=== PATIENT | female | born 1935 | race African-American/Black ===

== ENCOUNTER 2021-12-18 15:45 | Emergency (ER) | payer OTHER ==
[~2021-12-18] VITALS: Ht 165.1 cm; Wt 60.0 kg
[~2021-12-18 15:45] MED LIST: METF-414 MT; VITA250012 MT
[2021-12-18] MEDS ORDERED: EPINEPHRINE 1:1000 1 MG/ML AMP IM ONE (16:15)
[2021-12-18] MEDS ORDERED: METHYLPREDNISOLONE SOD SUCC 125 MG/2 ML VIAL IV ONE (16:15)
[2021-12-18] MEDS ORDERED: DIPHENHYDRAMINE 50MG/ML VIAL IV ONE (16:15)
[2021-12-18] MEDS ORDERED: FAMOTIDINE 20MG/2ML VIAL IV ONE (16:15)
[2021-12-18] MEDS ORDERED: FAMOTIDINE 20MG/2ML VIAL IV NR (17:00)
[2021-12-18 17:05] LABS: BASOPHILS % 0.3 % (0.0-2.0); EOSINOPHILS % 0.4 % (0.0-5.0); HEMATOCRIT. 34.7 % (36.0-48.0); HEMOGLOBIN. 11.1 g/dL (12.0-16.0); LYMPHOCYTES % 14.1 % (20.0-50.0); MEAN CORPUSCULAR HEMOGLOBIN 28.4 pg (28.0-32.0); MEAN CORPUSCULAR VOLUME 88.4 fL (81.0-99.0); MEAN PLATELET VOLUME 8.7 fl (7.4-10.4); MONOCYTES % 6.7 % (2.0-8.0); NEUTROPHILS % 78.5 % (40.0-76.0); PLATELET 269 x1000/uL (130-400); RED BLOOD CELL COUNT 3.93 mill/uL (4.2-5.4)
[2021-12-18 17:10] LABS: CHLORIDE 106 mEq/L (98-107)
[2021-12-18 19:47] VITALS: BP 140/53
[2021-12-18] MEDS ORDERED: EPIN0.3P3 IM (20:14)
== END 2021-12-18 20:41 | disposition home or self-care (01) ==
LOC: ER 15:45
DX: T78.40XA Allergy, unspecified, initial encounter (principal); X58.XXXA Exposure to other specified factors, initial encounter
CPT/HCPCS: 36415; 80053; 85025; 96372; 96374; 96375; 99291; J1200; J2930; J3490

== ENCOUNTER 2023-05-14 12:02 | Inpatient (IN) | payer OTHER ==
[~2023-05-14] VITALS: Ht 162.6 cm; Wt 35.0 kg
[~2023-05-14 12:02] MED LIST changes: +EPIN0.3P3 IM
[2023-05-14 12:40] LABS: BASOPHILS % 0.3 % (0.0-2.0); HEMATOCRIT. 38.3 % (36.0-48.0); HEMOGLOBIN. 12.9 g/dL (12.0-16.0); LYMPHOCYTES % 11.9 % (20.0-50.0); MEAN CORPUSCULAR HEMOGLOBIN 27.8 pg (28.0-32.0); MEAN CORPUSCULAR HGB CONC 33.6 g/dL (31.0-37.0); MEAN CORPUSCULAR VOLUME 82.6 fL (81.0-99.0); MEAN PLATELET VOLUME 7.4 fl (7.4-10.4); MONOCYTES % 6.7 % (2.0-8.0); NEUTROPHILS % 81.1 % (40.0-76.0); PLATELET 306 x1000/uL (130-400); RED BLOOD CELL COUNT 4.64 mill/uL (4.2-5.4); RED CELL DISTRIBUTION WIDTH 13.1 % (11.6-14.6)
[2023-05-14 12:51] LABS: CHLORIDE 95 mEq/L (98-107); INDEX HEMOLYSI 1 (1-3); INDEX ICTERIC 1 (1-4); INDEX LIPEMIC 1 (1-3); POTASSIUM 3.9 mEq/L (3.5-5.1); SODIUM 133 mEq/L (136-145)
[2023-05-14 12:57] LABS: ALANINE AMINOTRANSFERASE 22 IU/L (13-61); ALBUMIN 3.9 g/dL (3.4-5.0); ASPARTATE AMINOTRANSFERASE 33 IU/L (15-37); BILIRUBIN TOTAL 0.7 mg/dL (0.1-1.0); CALCIUM 9.1 mg/dL (8.5-10.1); CARBON DIOXIDE 22 mEq/L (21-32); CREATININE 4.3 mg/dL (0.6-1.3); GLUCOSE 191 mg/dL (70-105); PROTEIN TOTAL 7.7 g/dL (6.0-8.3); UREA NITROGEN BLOOD 65 mg/dL (7-21)
[2023-05-14] MEDS ORDERED: SODIUM CHLORIDE 0.9% 1000ML BAG (SEPSIS BOLUS) IV ONE (18:00)
[2023-05-14] MEDS ORDERED: CEFTRIAXONE 1GM PREMIX 50 ML IV ONE (18:00)
[2023-05-14 20:17] LABS: NT PRO B-TYPE NATRIURETIC PEP 1800 pg/mL (5-125)
[2023-05-14 20:21] LABS: LACTIC ACID 3.6 mmol/L (0.4-2.0); TROPONIN I HIGH SENSITIVITY 100 ng/L (<54)
[2023-05-14] MEDS ORDERED: CEFTRIAXONE 1GM PREMIX 50 ML IV NR (20:45)
[2023-05-14 20:47] LABS: CLARITY URINE TURBID (CLEAR); COLOR URINE YELLOW (YELLOW); GLUCOSE URINE NEGATIVE (NEGATIVE); KETONES URINE TRACE (NEGATIVE); LEUKOCYTE ESTERASE URINE 2+ (NEGATIVE); NITRITE URINE NEGATIVE (NEGATIVE); OCCULT BLOOD URINE 2+ (NEGATIVE); PROTEIN URINE 3+ (NEGATIVE); SPECIFIC GRAVITY URINE 1.018 (1.005-1.030); UROBILINOGEN URINE 0.2 E.U./dL (0.2-1.0)
[2023-05-14 21:07] LABS: COARSE GRANULAR CASTS URINE 0-5 /lpf
[2023-05-14 21:08] LABS: BACTERIA URINE 2+; SQUAMOUS EPITHELIAL CELL URINE FEW /lpf (RARE/1+)
[2023-05-14] MEDS ORDERED: ASPIRIN 81MG TABLET PO ONE (21:30)
[2023-05-14 22:03] VITALS: BP 129/59; PULSE 82; RESP 19; TEMP 97.7
[2023-05-14] MEDS ORDERED: DEXTROSE 50% WATER 50ML SYRINGE IV PRN (23:45)
[2023-05-15] VITALS: BP 132/52; PULSE 88; RESP 19; TEMP 97.5
[2023-05-15 04:00] VITALS: PULSE 80; RESP 20; TEMP 97.7
[2023-05-15] MEDS: BLOOD SUGAR DIAGNOSTIC STRIP TEST SCH ×4 (06:14→20:36)
[2023-05-15 06:38] LABS: BASOPHILS % 0.3 % (0.0-2.0); EOSINOPHILS % 0.1 % (0.0-5.0); HEMATOCRIT. 33.5 % (36.0-48.0); HEMOGLOBIN. 11.6 g/dL (12.0-16.0); LYMPHOCYTES % 19.2 % (20.0-50.0); MEAN CORPUSCULAR HEMOGLOBIN 28.5 pg (28.0-32.0); MEAN CORPUSCULAR HGB CONC 34.6 g/dL (31.0-37.0); MEAN CORPUSCULAR VOLUME 82.4 fL (81.0-99.0); MEAN PLATELET VOLUME 8.4 fl (7.4-10.4); MONOCYTES % 6.9 % (2.0-8.0); NEUTROPHILS % 73.5 % (40.0-76.0); PLATELET 272 x1000/uL (130-400); RED BLOOD CELL COUNT 4.06 mill/uL (4.2-5.4); RED CELL DISTRIBUTION WIDTH 13.1 % (11.6-14.6); WHITE BLOOD COUNT 6.7 x1000/uL (4.5-11.0)
[2023-05-15 07:20] LABS: POTASSIUM 3.3 mEq/L (3.5-5.1)
[2023-05-15 07:45] LABS: CREATININE 3.7 mg/dL (0.6-1.3)
[2023-05-15 08:00] VITALS: BP 98/44; PULSE 74; RESP 20; TEMP 98.4
[2023-05-15] MEDS: INSULIN LISPRO 100 UNITS/ML SUBCUT SCH ×4 (08:10→20:36)
[2023-05-15 12:00] VITALS: BP 98/44; PULSE 74; RESP 20; TEMP 98.1
[2023-05-15 16:00] VITALS: BP 117/62; PULSE 77; RESP 16; TEMP 96.9
[2023-05-15] MEDS ORDERED: THIAMINE HCL 200 MG in SODIUM CHLORIDE 0.9% 98 ML IV SCH (18:00)
[2023-05-15 20:00] VITALS: BP 124/66; PULSE 75; RESP 16; TEMP 97.3
[2023-05-15] MEDS ORDERED: CEFTRIAXONE 1,000 MG in DEXTROSE 5% WATER 50 ML IV SCH (20:00)
[2023-05-15] MEDS: SODIUM CHLORIDE 0.9% 1,000 ML IV SCH (20:10)
[2023-05-16] VITALS: BP 94/44; PULSE 60; RESP 17; TEMP 96.9
[2023-05-16 04:00] VITALS: BP_SYST 107; BP_SYST 116; BP_DIAS 50; BP_DIAS 61; PULSE 61; PULSE 71; RESP 17; RESP 18; TEMP 96.8; TEMP 97.7
[2023-05-16 06:34] LABS: BASOPHILS % 0.3 % (0.0-2.0); EOSINOPHILS % 0.3 % (0.0-5.0); HEMATOCRIT. 35.5 % (36.0-48.0); HEMOGLOBIN. 12.2 g/dL (12.0-16.0); LYMPHOCYTES % 14.5 % (20.0-50.0); MEAN CORPUSCULAR HEMOGLOBIN 28.5 pg (28.0-32.0); MEAN CORPUSCULAR HGB CONC 34.3 g/dL (31.0-37.0); MEAN CORPUSCULAR VOLUME 83.2 fL (81.0-99.0); MEAN PLATELET VOLUME 8.1 fl (7.4-10.4); MONOCYTES % 8.2 % (2.0-8.0); NEUTROPHILS % 76.7 % (40.0-76.0); PLATELET 258 x1000/uL (130-400); RED BLOOD CELL COUNT 4.27 mill/uL (4.2-5.4); RED CELL DISTRIBUTION WIDTH 13.3 % (11.6-14.6); WHITE BLOOD COUNT 6.8 x1000/uL (4.5-11.0)
[2023-05-16] MEDS: BLOOD SUGAR DIAGNOSTIC STRIP TEST SCH ×2 (07:40→12:40)
[2023-05-16 07:52] LABS: FOLIC ACID (FOLATE) SERUM 10.1 ng/mL (>5.38)
[2023-05-16 08:00] VITALS: BP 117/56; PULSE 70; RESP 18; TEMP 97.5
[2023-05-16] MEDS: INSULIN LISPRO 100 UNITS/ML SUBCUT SCH ×2 (08:10→13:10)
[2023-05-16] MEDS ORDERED: ENOXAPARIN 30MG/0.3ML SYR SUBCUT SCH (09:00)
[2023-05-16 09:08] LABS: POTASSIUM 2.9 mEq/L (3.5-5.1)
[2023-05-16 09:20] LABS: CALCIUM 8.4 mg/dL (8.5-10.1); CREATININE 3.4 mg/dL (0.6-1.3)
[2023-05-16] MEDS: SODIUM CHLORIDE 0.9% 1,000 ML IV SCH (09:41)
[2023-05-16] MEDS ORDERED: POTASSIUM CHLORIDE INJ 40 MEQ in DEXT 5% WATER 250 ML IV ONE (10:00)
[2023-05-16] MEDS ORDERED: KCL 20MEQ/100ML X 2 FOR TOTAL KCL 40MEQ/200ML IV SCH (11:30)
[2023-05-16 12:00] VITALS: BP 113/54; PULSE 78; RESP 18; TEMP 97.5
[2023-05-16 16:00] VITALS: BP 107/61; PULSE 61; RESP 18; TEMP 97.7
[2023-05-16] MEDS ORDERED: LEVO250T74 MT (17:22)
[2023-05-16 17:31] VITALS: BP 113/54; PULSE 78; TEMP 97.5; O2SAT 100
[2023-05-16] MEDS ORDERED: POTASSIUM CHLORIDE 20MEQ TABLET SR PO NR (17:45)
== END 2023-05-16 18:46 | disposition home or self-care (01) | DRG 70 ==
LOC: ER 12:02 → EDBEDREQ 19:18 → EDBEDREQTM 19:18 → ER 22:22 → 7WST 22:45
PROVIDERS: ADMIT Internal Medicine; ATTEND Internal Medicine
DX: G93.41 Metabolic encephalopathy (principal); N17.0 Acute kidney failure with tubular necrosis; N39.0 Urinary tract infection, site not specified; E87.1 Hypo-osmolality and hyponatremia; J44.9 Chronic obstructive pulmonary disease, unspecified; D64.9 Anemia, unspecified; I12.9 Hypertensive chronic kidney disease with stage 1 through stage 4 chronic kidney disease, or unspecified chronic kidney disease; N18.30 Chronic kidney disease, stage 3 unspecified; E11.22 Type 2 diabetes mellitus with diabetic chronic kidney disease; E87.6 Hypokalemia; F03.90 Unspecified dementia, unspecified severity, without behavioral disturbance, psychotic disturbance, mood disturbance, and anxiety; Z79.899 Other long term (current) drug therapy
CPT/HCPCS: 36415; 71045; 76770; 80048; 80053; 80061; 81003; 82607; 82746; 82962; 83036; 83605; 83735; 83880; 84145; 84484; 85025; 93005; 96365; 99291; C1893; J0696; J1650; J1815; J3411; J3480; J7030; J7050; J7060

== ENCOUNTER 2023-07-05 12:48 | Emergency (ER) | payer MEDICARE, OTHER ==
[~2023-07-05] VITALS: Ht 162.6 cm; Wt 36.3 kg
[~2023-07-05 12:48] MED LIST changes: +APIX5TAB MT; -EPIN0.3P3 IM
[2023-07-05 13:00] VITALS: O2SAT 100
[2023-07-05 14:08] LABS: CLARITY URINE TURBID (CLEAR); COLOR URINE YELLOW (YELLOW); GLUCOSE URINE TRACE (NEGATIVE); KETONES URINE NEGATIVE (NEGATIVE); LEUKOCYTE ESTERASE URINE 1+ (NEGATIVE); NITRITE URINE NEGATIVE (NEGATIVE); OCCULT BLOOD URINE TRACE (NEGATIVE); PROTEIN URINE NEGATIVE (NEGATIVE); SPECIFIC GRAVITY URINE 1.019 (1.005-1.030); UROBILINOGEN URINE 0.2 E.U./dL (0.2-1.0)
[2023-07-05 14:47] LABS: BACTERIA URINE 4+; SQUAMOUS EPITHELIAL CELL URINE 1+ /lpf (RARE/1+)
[2023-07-05 14:50] LABS: RBC URINE NONE SEEN /hpf (0-2); WBC URINE 0-2 /hpf (0-2)
[2023-07-05 15:01] LABS: BASOPHILS % 1.3 % (0.0-2.0); EOSINOPHILS % 0.8 % (0.0-5.0); HEMATOCRIT. 28.1 % (36.0-48.0); MEAN CORPUSCULAR HEMOGLOBIN 29.1 pg (28.0-32.0); MEAN CORPUSCULAR HGB CONC 31.9 g/dL (31.0-37.0); MEAN CORPUSCULAR VOLUME 91.3 fL (81.0-99.0); MEAN PLATELET VOLUME 9.3 fl (7.4-10.4); MONOCYTES % 11.7 % (2.0-8.0); NEUTROPHILS % 62.2 % (40.0-76.0); PLATELET 301 x1000/uL (130-400); RED BLOOD CELL COUNT 3.08 mill/uL (4.2-5.4); RED CELL DISTRIBUTION WIDTH 16.8 % (11.6-14.6)
[2023-07-05 15:03] LABS: ALANINE AMINOTRANSFERASE 13 IU/L (10-49); ALBUMIN 3.7 g/dL (3.2-4.8); ASPARTATE AMINOTRANSFERASE 25 IU/L (<34); BILIRUBIN TOTAL 0.4 mg/dL (0.1-1.0); CALCIUM 9.1 mg/dL (8.7-10.4); CARBON DIOXIDE 27 mEq/L (21-32); CHLORIDE 108 mEq/L (98-107); GLUCOSE 137 mg/dL (70-105); POTASSIUM 5.1 mEq/L (3.5-5.1); PROTEIN TOTAL 6.2 g/dL (6.0-8.3); SODIUM 142 mEq/L (136-145); UREA NITROGEN BLOOD 28 mg/dL (9-23)
[2023-07-05 15:51] VITALS: BP 136/80; PULSE 74; RESP 16; TEMP 98.2
== END 2023-07-05 15:52 | disposition home or self-care (01) ==
LOC: ER 12:48
DX: I89.0 Lymphedema, not elsewhere classified (principal); E11.9 Type 2 diabetes mellitus without complications; I10 Essential (primary) hypertension; Z98.890 Other specified postprocedural states
CPT/HCPCS: 36415; 71045; 80053; 81003; 83880; 85025; 93970; 99284